=== PATIENT | male | born 1995 | race African-American/Black ===

== ENCOUNTER 2017-11-07 12:11 | Inpatient (IN) | payer BC, OTHER ==
[2017-11-07 13:20] VITALS: BMI 23.0
--- NOTE | 2017-11-07 13:44 | HP ---
COWS - Scale Resting Pulse: 1= MA 81-100 Sweatin= Chills/Flushing Restless Observation: 3= Extraneous Movement Pupil Size: 2= Moderately Dilated Bone or Joint Aches: 2= Severe Diffuse Aches Runny Nose/ Eye Tearin= Runny Nose/Eyes GI Upset > 30mins: 3= Vomiting/Diarrhea Tremor Observation: 2= Slight Tremor Visible Yawning Observation: 2= >3x During Session Anxiety or Irritability: 2=Irritable/Anxious Goose Flesh Skin: 0=Smooth Skin COWS Score: 20 Admission ROS S - HPI Chief Complaint: i need help help to stop using heroin Allergies/Adverse Reactions: Allergies Allergy/AdvReac Type Severity Reaction Status Date / Time No Known Allergies Allergy Verified 11/07/17 13:37 History of Present Illness: this 22 years old male with heroin dependence,seeking detox from heroin, withdrawal symptom,last treatment [facility] 10/08/17 to 10/10/17 not completed anxiety,insomnia nicotine dependence no significant period of sobriety Exam Limitations: No Limitations - Ebola screening Have you been sick,other than usual withdrawal symptoms: No - Review of Systems Constitutional: Chills, Loss of Appetite, Malaise, Night Sweats, Changes in sleep, Weakness EENT: reports: Tearing, Nose Congestion Respiratory: reports: No Symptoms reported, Other (astma) Cardiac: reports: No Symptoms Reported GI: reports: Nausea, Vomiting, Abdominal cramping : reports: No Symptoms Reported Musculoskeletal: reports: Back Pain, Joint Pain, Muscle Pain, Joint Stiffness Integumentary: reports: Dryness Neuro: reports: Headache, Tremors Endocrine: reports: No Symptoms Reported Hematology: reports: No Symptoms Reported Psychiatric: reports: Anxious (insomnia) Patient History - Patient Medical History Hx Anemia: No Hx Asthma: Yes (on albuterol inhaler) Hx Chronic Obstructive Pulmonary Disease (COPD): No Hx Cancer: No Hx Cardiac Disorders: No Hx Congestive Heart Failure: No Hx Hypertension: No Hx Hypercholesterolemia: No Hx Pacemaker: No HX Cerebrovascular Accident: No Hx Seizures: No Hx Dementia: No Hx Diabetes: No Hx Gastrointestinal Disorders: No Hx Liver Disease: No Hx Genitourinary Disorders: No Hx Sexually Transmitted Disorders: No Hx Renal Disease (ESRD): No Hx Thyroid Disease: No Hx Human Immunodeficiency Virus (HIV): No (last 08/11 negative) Hx Hepatitis C: No Hx Depression: Yes Hx Suicide Attempt: No Hx Bipolar Disorder: No Hx Schizophrenia: No Other Medical History: anxiety,insomnia,depression - Patient Surgical History Past Surgical History: No Hx Neurologic Surgery: No Hx Cataract Extraction: No Hx Cardiac Surgery: No Hx Lung Surgery: No Hx Breast Surgery: No Hx Breast Biopsy: No Hx Abdominal Surgery: No Hx Appendectomy: No Hx Cholecystectomy: No Hx Genitourinary Surgery: No Hx Section: No Hx Orthopedic Surgery: No - PPD History Documented Results: Negative w/o proof Implanted On Prior [facility] Admission?: Yes PPD to be Administered?: Yes - Smoking Cessation Smoking history: Current every day smoker Have you smoked in the past 12 months: Yes Aproximately how many cigarettes per day: 6 Cigars Per Day: 0 Hx Chewing Tobacco Use: No Initiated information on smoking cessation: Yes 'Breaking Loose' booklet given: 11/07/17 - Substance & Tx. History Hx Alcohol Use: No Hx Substance Use: Yes Substance Use Type: Heroin Hx Substance Use Treatment: Yes - Substances Abused Heroin Route: Inhalation Frequency: Daily Amount used: 7 BAGS Age of first use: 22 Date of Last Use: 11/07/17 Family Disease History - Family Disease History Family Disease History: Other: Father (no contact) Admission Physical Exam [facility] - Vital Signs Vital Signs: Vital Signs - 24 hr 11/07/17 13:15 Temperature 98.1 F Pulse Rate 93 H Respiratory 20 Rate Blood Pressure 126/57 - Physical General Appearance: Yes: Moderate Distress, Tremorous, Irritable, Sweating, Anxious HEENTM: Yes: Normal ENT Inspection, SHAKEEL, Pharynx Normal Respiratory: Yes: Lungs Clear, Normal Breath Sounds, No Respiratory Distress Neck: Yes: Within Normal Limits, Supple, Trachea in good position Breast: Yes: Within Normal Limits Cardiology: Yes: Within Normal Limits, Regular Rhythm, Regular Rate, S1, S2 Abdominal: Yes: Within Normal Limits, Normal Bowel Sounds, Non Tender, Flat, Soft Genitourinary: Yes: Within Normal Limits Back: Yes: Within Normal Limits, Muscle Spasm Musculoskeletal: Yes: full range of Motion, Back pain, Joint Stiffness, Muscle Pain Extremities: Yes: Tremors Neurological: Yes: polishing pad mounter II-XII NML intact, Fully Oriented, Motor Strength 5/5 Integumentary: Yes: Dry Lymphatic: Yes: Within Normal Limits - Diagnostic (1) Anxiety and depression Current Visit: Yes Status: Acute (2) Insomnia Current Visit: No Status: Acute Qualifiers: Insomnia type: unspecified Qualified Code(s): G47.00 - Insomnia, unspecified (3) Nicotine dependence Current Visit: No Status: Acute Qualifiers: Nicotine product type: cigarettes Substance use status: in withdrawal Qualified Code(s): F17.213 - Nicotine dependence, cigarettes, with withdrawal (4) Opioid dependence with withdrawal Current Visit: No Status: Acute (5) Asthma Current Visit: No Status: Chronic Qualifiers: Asthma severity: mild Asthma persistence: intermittent Asthma complication type: with status asthmaticus Qualified Code(s): J45.22 - Mild intermittent asthma with status asthmaticus (6) Substance induced mood disorder Current Visit: No Status: Suspected Cleared for Admission [facility] - Detox or Rehab [facility] Level of Care: Medically Managed Detox Regimen/Protocol: Methadone [facility] Breath Alcohol Content Breath Alcohol Content: 0 Urine Drug Screen - Results Drug Screen Negative: No Urine Drug Screen Results: OPI-Opiates, BZO-Benzodiazepines, TCA-Tricyclic Antidepress, OXY-Oxycodone
[2017-11-07] MEDS ORDERED: LOPERAMIDE HCL 2 MG CAPSULE PO PRN (13:53)
[2017-11-07] MEDS ORDERED: P-EPHED 60MG/TRIPROLIDI 2.5MG TABLET PO PRN (13:53)
[2017-11-07] MEDS ORDERED: MAG HYDROX/AL HYDROX/SIMETH 30 ML UNIT-DOSE CUP PO PRN (13:53)
[2017-11-07] MEDS ORDERED: IBUPROFEN 400 MG TABLET (FP) PO PRN (13:53)
[2017-11-07] MEDS ORDERED: guaiFENesin/D-METHORPHAN HB 10 ML UNIT-DOSE CUPS PO PRN (13:53)
[2017-11-07] MEDS ORDERED: MENTHOL/PHENOL 1 EACH UD MM PRN (13:53)
[2017-11-07] MEDS ORDERED: METHADONE HCL 10 MG TABLET (FOR DETOX USE ONLY) PO ONE ×2 (13:53→23:00)
[2017-11-07] MEDS ORDERED: ACETAMINOPHEN 325 MG TABLET (FP) PO PRN (13:53)
[2017-11-07] MEDS ORDERED: MAGNESIUM HYDROX 2400MG/30ML ORAL SUSPENSION 30 ML CUP PO PRN (13:53)
[2017-11-07] MEDS ORDERED: MAGNESIUM CITRATE 300 ML BOTTLE PO PRN (13:53)
[2017-11-07] MEDS ORDERED: METHADONE HCL 10 MG TABLET (FOR DETOX USE ONLY) ONE (16:25)
[2017-11-07] MEDS: diazePAM 5 MG TABLET PO PRN ×2 (16:31→22:34)
[2017-11-07 21:42] LABS: URINE APPEARANCE SLCLOUDY; URINE BILIRUBIN NEGATIVE (NEGATIVE); URINE BLOOD NEGATIVE (NEGATIVE); URINE COLOR AMBER; URINE GLUCOSE (UA) NEGATIVE (NEGATIVE); URINE KETONE NEGATIVE (NEGATIVE); URINE LEUK ESTERASE NEGATIVE (NEGATIVE); URINE NITRITE NEGATIVE (NEGATIVE); URINE PROTEIN NEGATIVE (NEGATIVE)
[2017-11-07] MEDS: cloNIDine HCL 0.1 MG TABLET PO SCH (22:34)
[2017-11-07] MEDS: THIAMINE HCL 100 MG TABLET (FP) PO SCH (22:34)
[2017-11-07] MEDS: CYCLOBENZAPRINE HCL 10 MG TABLET (FP) PO PRN (22:34)
[2017-11-08 10:00] LABS: HEMATOCRIT 40.2 % (35.4-49); HEMOGLOBIN 12.9 GM/dL (11.7-16.9); MCH 26.3 pg (25.7-33.7); MCHC 32.1 g/dl (32.0-35.9); MEAN CELL VOLUME 81.8 fl (80-96); MEAN PLT VOLUME 7.1 fl (7.5-11.1); PLATELET COUNT 349 K/MM3 (134-434); RBC 4.92 M/mm3 (4.00-5.60); RDW 12.5 % (11.9-15.9); WHITE BLOOD COUNT 16.1 K/mm3 (4.0-10.0)
[2017-11-08] MEDS ORDERED: METHADONE HCL 10 MG TABLET (FOR DETOX USE ONLY) PO ONE (10:00)
--- NOTE | 2017-11-08 10:00 | CONSULT ---
[facility] Psychiatric Consult - Data Date of interview: 11/08/17 Admission source: Self-referred Identifying data: Mr Palomo is a 22 years old single Black male, unemployed, living with family seeking detox treatment for heroin Substance Abuse History: Reports history of heroin use. He started using heroin at age 22, consumes 7 bags daily. Last used on 11/07/17 Medical History: Significant for bronchial asthma. Smokes 6 cigarettes daily Psychiatric History: Reports that he received psychiatric treatment at [facility] clinic from March 2016 to October 2016. He Claims that he was was diagnosed with Anxiety, ADELAIDE and Insomnia and was tried on Seroquel Zyprexa, Vistaril and Gabapentin. Told typewriter aligner he stopped medication on his own because he did not want it anymore. Denies history of previous hospitalization or suicidal attempt. He saw Dr Dawson on 10/09/17 on a previous inpt detox admission in this facility and was prescribed Seroquel 100 mg po HS. Requests to be ordered Seroquel 100 mg po HS as it is effective for insomnia and anxiety. Physical/Sexual Abuse/Trauma History: Denies history of verbal, physical or sexual abuse as well as DV relationship Additional Comment: Reports history of one previous arrest on charges of [employer]. Told typewriter aligner that case is active Mental Status Exam - Mental Status Exam Alert and Oriented to: Time, Place, Person Cognitive Function: Fair Patient Appearance: Well Groomed Mood: Anxious Patient Behavior: Cooperative Speech Pattern: Clear Voice Loudness: Normal Thought Process: Intact, Goal Oriented Thought Disorder: Not Present Hallucinations: Denies Suicidal Ideation: Denies Homicidal Ideation: Denies Insight/Judgement: Poor Sleep: Poorly Appetite: Good Muscle strength/Tone: Normal Gait/Station: Normal Psychiatric Findings - Problem List ([place] 1, 2,3) (1) Substance-induced anxiety disorder Current Visit: Yes Status: Acute (2) ADELAIDE (generalized anxiety disorder) Current Visit: Yes Status: Ruled-out (3) Substance-induced sleep disorder Current Visit: Yes Status: Acute (4) Opioid dependence with withdrawal Current Visit: No Status: Acute (5) Nicotine dependence Current Visit: No Status: Chronic Qualifiers: Nicotine product type: cigarettes Substance use status: in withdrawal Qualified Code(s): F17.213 - Nicotine dependence, cigarettes, with withdrawal (6) Asthma Current Visit: No Status: Chronic Qualifiers: Asthma severity: mild Asthma persistence: intermittent Asthma complication type: with status asthmaticus Qualified Code(s): J45.22 - Mild intermittent asthma with status asthmaticus - Initial Treatment Plan Initial Treatment Plan: 1) Start Seroquel 100 mg po HS. 2) Continue inpatient detoxification
[2017-11-08 10:27] LABS: CHLORIDE 107 mmol/L (98-107); POTASSIUM 3.7 mmol/L (3.5-5.1); SODIUM 141 mmol/L (136-145)
[2017-11-08 10:36] LABS: ALBUMIN 4.2 g/dl (3.4-5.0); ALK PHOS 88 U/L (45-117); ANION GAP 7 (8-16); BILIRUBIN,TOTAL 1.3 mg/dL (0.2-1.0); BLOOD UREA NITROGEN 13 mg/dL (7-18); CALCIUM 8.6 mg/dL (8.5-10.1); CO2 27 mmol/L (21-32); GLUCOSE,RANDOM 96 mg/dL (74-106); SGOT/AST 29 U/L (15-37); SGPT/ALT 57 U/L (12-78); TOT PROT 7.3 g/dl (6.4-8.2)
[2017-11-08] MEDS: PRENATAL VITAMINS W/ FOLIC ACID TABLET (FP) PO SCH (10:50)
[2017-11-08] MEDS: cloNIDine HCL 0.1 MG TABLET PO SCH ×2 (10:50→22:38)
[2017-11-08] MEDS: diazePAM 5 MG TABLET PO PRN ×2 (12:37→22:39)
--- NOTE | 2017-11-08 12:44 | PN ---
[facility] COWS - Scale Resting Pulse: 1= ID 81-100 Sweatin= Chills/Flushing Restless Observation: 3= Extraneous Movement Pupil Size: 0= Normal to Room Light Bone or Joint Aches: 2= Severe Diffuse Aches Runny Nose/ Eye Tearin= Runny Nose/Eyes GI Upset > 30mins: 2= Nausea/Diarrhea Tremor Observation of Outstretched Hands: 1= Tremor [place], Not Seen Yawning Observation: 1= 1-2x During Session Anxiety or Irritability: 2=Irritable/Anxious Goose Flesh Skin: 0=Smooth Skin COWS Score: 15 S Progress Note (SOAP) Subjective: sweat body aches tearing restlessness alert Objective: 11/08/17 12:43 Vital Signs Temperature 97.7 F 11/08/17 10:00 Pulse Rate 95 H 11/08/17 10:00 Respiratory Rate 20 11/08/17 10:00 Blood Pressure 126/70 11/08/17 10:00 O2 Sat by Pulse Oximetry (%) Laboratory Last Values WBC 16.1 K/mm3 (4.0-10.0) H D 11/08/17 07:30 RBC 4.92 M/mm3 (4.00-5.60) 11/08/17 07:30 Hgb 12.9 GM/dL (11.7-16.9) 11/08/17 07:30 Hct 40.2 % (35.4-49) 11/08/17 07:30 MCV 81.8 fl (80-96) 11/08/17 07:30 MCH 26.3 pg (25.7-33.7) 11/08/17 07:30 MCHC 32.1 g/dl (32.0-35.9) 11/08/17 07:30 RDW 12.5 % (11.9-15.9) 11/08/17 07:30 Plt Count 349 K/MM3 (134-434) 11/08/17 07:30 MPV 7.1 fl (7.5-11.1) L 11/08/17 07:30 Sodium 141 mmol/L (136-145) 11/08/17 07:30 Potassium 3.7 mmol/L (3.5-5.1) 11/08/17 07:30 Chloride 107 mmol/L (98-107) 11/08/17 07:30 Carbon Dioxide 27 mmol/L (21-32) 11/08/17 07:30 Anion Gap 7 (8-16) L 11/08/17 07:30 BUN 13 mg/dL (7-18) 11/08/17 07:30 Creatinine 1.0 mg/dL (0.7-1.3) D 11/08/17 07:30 Creat Clearance w eGFR > 60 (>60) 11/08/17 07:30 Random Glucose 96 mg/dL (74-106) 11/08/17 07:30 Calcium 8.6 mg/dL (8.5-10.1) 11/08/17 07:30 Total Bilirubin 1.3 mg/dL (0.2-1.0) H D 11/08/17 07:30 AST 29 U/L (15-37) 11/08/17 07:30 ALT 57 U/L (12-78) 11/08/17 07:30 Alkaline Phosphatase 88 U/L (45-117) 11/08/17 07:30 Total Protein 7.3 g/dl (6.4-8.2) 11/08/17 07:30 Albumin 4.2 g/dl (3.4-5.0) 11/08/17 07:30 Urine Color Jenny 11/07/17 14:00 Urine Appearance Slcloudy 11/07/17 14:00 Urine pH 5.0 (5.0-8.0) 11/07/17 14:00 Ur Specific [place] 1.027 (1.001-1.035) 11/07/17 14:00 Urine Protein Negative (NEGATIVE) 11/07/17 14:00 Urine Glucose (UA) Negative (NEGATIVE) 11/07/17 14:00 Urine Ketones Negative (NEGATIVE) 11/07/17 14:00 Urine Blood Negative (NEGATIVE) 11/07/17 14:00 Urine Nitrite Negative (NEGATIVE) 11/07/17 14:00 Urine Bilirubin Negative (NEGATIVE) 11/07/17 14:00 Urine Urobilinogen 2.0 mg/dL (0.2-1.0) 11/07/17 14:00 Ur Leukocyte Esterase Negative (NEGATIVE) 11/07/17 14:00 lab noted Assessment: 11/08/17 12:44 withdrawal sx Plan: continue detox
[2017-11-08] MEDS ORDERED: QUEtiapine FUMARATE 100 MG TABLET (FP) PO SCH (22:00)
[2017-11-08] MEDS: CYCLOBENZAPRINE HCL 10 MG TABLET (FP) PO PRN (22:38)
[2017-11-08] MEDS: THIAMINE HCL 100 MG TABLET (FP) PO SCH (22:39)
[2017-11-09] MEDS ORDERED: METHADONE HCL 5 MG TABLET (FOR DETOX USE ONLY) PO ONE (10:00)
[2017-11-09] MEDS: cloNIDine HCL 0.1 MG TABLET PO SCH (11:16)
[2017-11-09] MEDS: PRENATAL VITAMINS W/ FOLIC ACID TABLET (FP) PO SCH (11:16)
[2017-11-09] MEDS: diazePAM 5 MG TABLET PO PRN (11:19)
--- NOTE | 2017-11-09 11:49 | EKG ---
Test Reason : Blood Pressure : / mmHG Vent. Rate : 084 BPM Atrial Rate : 084 BPM P-R Int : 172 ms QRS Dur : 086 ms QT Int : 378 ms P-R-T Axes : 025 050 033 degrees QTc Int : 446 ms NORMAL SINUS RHYTHM NORMAL ECG WHEN COMPARED WITH ECG OF 08-OCT-2017 21:40, NONSPECIFIC T WAVE ABNORMALITY NO LONGER EVIDENT IN ANTERIOR LEADS Confirmed by GEOVANY LUGO MD ([id number]) on 11/09/2017 11:48:28 AM Referred By: Chris Mendoza Confirmed By:GEOVANY LUGO MD
--- NOTE | 2017-11-09 12:15 | PN ---
BHS COWS - Scale Resting Pulse: 0= FL 80 or Below Sweatin= Chills/Flushing Restless Observation: 3= Extraneous Movement Pupil Size: 1= Pupils >than Normal Bone or Joint Aches: 2= Severe Diffuse Aches Runny Nose/ Eye Tearin= Runny Nose/Eyes GI Upset > 30mins: 3= Vomiting/Diarrhea Tremor Observation of Outstretched Hands: 2= Slight Tremor Visible Yawning Observation: 1= 1-2x During Session Anxiety or Irritability: 2=Irritable/Anxious Goose Flesh Skin: 0=Smooth Skin COWS Score: 17 BHS Progress Note (SOAP) Subjective: ALERT,IRRITABLE,ANXIOUS,INTERRUPTED SLEEP,TREMOR,PAIN IN THE BODY AND BACK Objective: 11/09/17 12:11 Vital Signs Temperature 98.2 F 11/09/17 11:47 Pulse Rate 95 H 11/09/17 11:47 Respiratory Rate 16 11/09/17 11:47 Blood Pressure 100/71 11/09/17 11:47 O2 Sat by Pulse Oximetry (%) RKG NSR,NORMAL ECG Laboratory Last Values WBC 16.1 K/mm3 (4.0-10.0) H D 11/08/17 07:30 RBC 4.92 M/mm3 (4.00-5.60) 11/08/17 07:30 Hgb 12.9 GM/dL (11.7-16.9) 11/08/17 07:30 Hct 40.2 % (35.4-49) 11/08/17 07:30 MCV 81.8 fl (80-96) 11/08/17 07:30 MCH 26.3 pg (25.7-33.7) 11/08/17 07:30 MCHC 32.1 g/dl (32.0-35.9) 11/08/17 07:30 RDW 12.5 % (11.9-15.9) 11/08/17 07:30 Plt Count 349 K/MM3 (134-434) 11/08/17 07:30 MPV 7.1 fl (7.5-11.1) L 11/08/17 07:30 Sodium 141 mmol/L (136-145) 11/08/17 07:30 Potassium 3.7 mmol/L (3.5-5.1) 11/08/17 07:30 Chloride 107 mmol/L (98-107) 11/08/17 07:30 Carbon Dioxide 27 mmol/L (21-32) 11/08/17 07:30 Anion Gap 7 (8-16) L 11/08/17 07:30 BUN 13 mg/dL (7-18) 11/08/17 07:30 Creatinine 1.0 mg/dL (0.7-1.3) D 11/08/17 07:30 Creat Clearance w eGFR > 60 (>60) 11/08/17 07:30 Random Glucose 96 mg/dL (74-106) 11/08/17 07:30 Calcium 8.6 mg/dL (8.5-10.1) 11/08/17 07:30 Total Bilirubin 1.3 mg/dL (0.2-1.0) H D 11/08/17 07:30 AST 29 U/L (15-37) 11/08/17 07:30 ALT 57 U/L (12-78) 11/08/17 07:30 Alkaline Phosphatase 88 U/L (45-117) 11/08/17 07:30 Total Protein 7.3 g/dl (6.4-8.2) 11/08/17 07:30 Albumin 4.2 g/dl (3.4-5.0) 11/08/17 07:30 Urine Color Jenny 11/07/17 14:00 Urine Appearance Slcloudy 11/07/17 14:00 Urine pH 5.0 (5.0-8.0) 11/07/17 14:00 Ur Specific [place] 1.027 (1.001-1.035) 11/07/17 14:00 Urine Protein Negative (NEGATIVE) 11/07/17 14:00 Urine Glucose (UA) Negative (NEGATIVE) 11/07/17 14:00 Urine Ketones Negative (NEGATIVE) 11/07/17 14:00 Urine Blood Negative (NEGATIVE) 11/07/17 14:00 Urine Nitrite Negative (NEGATIVE) 11/07/17 14:00 Urine Bilirubin Negative (NEGATIVE) 11/07/17 14:00 Urine Urobilinogen 2.0 mg/dL (0.2-1.0) 11/07/17 14:00 Ur Leukocyte Esterase Negative (NEGATIVE) 11/07/17 14:00 RPR Titer Nonreactive (NONREACTIVE) 11/08/17 07:30 Assessment: 11/09/17 12:13 WITHDRAWAL SYMPTOM Plan: CONTINUE DETOX,ENCOURAGE ORAL FLUID,WBC 16.100, ENCOURAGE ORAL FLUID,REPEAT CBC,BILIRUBIN IN AM
[2017-11-09 14:31] VITALS: BP 96/71; PULSE 71; TEMP 98.6
--- NOTE | 2017-11-09 14:35 | PN ---
S Progress Note Note: PATIENT DID NOT WANT TO COMPLETE TREATMENT DUE TO EMERGENCY FAMILY PROBLEM,SEEN BY COUNSELOR,SIGNED RELEASE AMA
--- NOTE | 2017-11-09 14:40 | DS ---
[facility] Detox Discharge Summary Admission Date: 11/07/17 Discharge Date: 11/09/17 - History Present History: Opioid Dependence Additional Comments: PATIENT COULD NOT COMPLETE TREATMENT DUE TO FAMILY EMERGENCY,SEEN BY COUNSELOR, SIGNED RELEASE AMA Pertinent Past History: ASTHMA NICOTINE DEPENDENCE ANXIETY AND DEPRESSION INSOMNIA SUBSTANCE INDUCED MOOD DISORDER - Physical Exam Results Vital Signs: Vital Signs Temperature 98.6 F 11/09/17 14:26 Pulse Rate 71 11/09/17 14:26 Respiratory Rate 20 11/09/17 14:26 Blood Pressure 96/71 11/09/17 14:26 O2 Sat by Pulse Oximetry (%) Pertinent Admission Physical Exam Findings: WITHDRAWAL SYMPTOM AND FINDINGS Vital Signs Temperature 98.6 F 11/09/17 14:26 Pulse Rate 71 11/09/17 14:26 Respiratory Rate 20 11/09/17 14:26 Blood Pressure 96/71 11/09/17 14:26 O2 Sat by Pulse Oximetry (%) - Medication Discharge Medications: Ambulatory Orders Albuterol Sulfate Inhaler - [Ventolin Hfa Inhaler -] 2 inh PO Q4H 10/08/17 Quetiapine Fumarate [Seroquel] 100 mg PO HS #30 tablet 11/09/17 - Diagnosis (1) Opioid dependence with withdrawal Current Visit: No Status: Acute (2) Anxiety and depression Current Visit: Yes Status: Acute (3) Insomnia Current Visit: No Status: Acute Qualifiers: Insomnia type: unspecified Qualified Code(s): G47.00 - Insomnia, unspecified (4) Nicotine dependence Current Visit: No Status: Chronic Qualifiers: Nicotine product type: cigarettes Substance use status: in withdrawal Qualified Code(s): F17.213 - Nicotine dependence, cigarettes, with withdrawal (5) Asthma Current Visit: No Status: Chronic Qualifiers: Asthma severity: mild Asthma persistence: intermittent Asthma complication type: with status asthmaticus Qualified Code(s): J45.22 - Mild intermittent asthma with status asthmaticus (6) Substance induced mood disorder Current Visit: No Status: Suspected - AMA Did Patient Leave Against Medical Advice: Yes
[2017-11-10] MEDS ORDERED: METHADONE HCL 5 MG TABLET (FOR DETOX USE ONLY) PO ONE (10:00)
[2017-11-11] MEDS ORDERED: METHADONE HCL 10 MG TABLET (FOR DETOX USE ONLY) PO ONE (10:00)
[2017-11-12] MEDS ORDERED: METHADONE HCL 5 MG TABLET (FOR DETOX USE ONLY) PO ONE (06:00)
== END 2017-11-09 14:57 | disposition left against medical advice (07) | DRG 894 ==
LOC: YASAS 12:11 → Y6N 13:56
PROVIDERS: ADMIT Internal Medicine; ATTEND Internal Medicine
PROC: HZ2ZZZZ Detoxification Services for Substance Abuse Treatment (ICD-10-PCS; principal; 2017-11-07)
DX: F11.23 Opioid dependence with withdrawal (principal); J45.22 Mild intermittent asthma with status asthmaticus; F17.213 Nicotine dependence, cigarettes, with withdrawal; F41.8 Other specified anxiety disorders; F19.24 Other psychoactive substance dependence with psychoactive substance-induced mood disorder; F41.1 Generalized anxiety disorder; G47.00 Insomnia, unspecified
CPT/HCPCS: 36415; 80053; 81003; 85027; 86593; 93005; 93010

== ENCOUNTER 2018-08-11 12:09 | Inpatient (IN) | payer OTHER ==
[2018-08-11 16:06] VITALS: BMI 23.3
--- NOTE | 2018-08-11 16:45 | HP ---
COWS - Scale Resting Pulse: 2= FL 101-120 Sweatin= Chills/Flushing Restless Observation: 1= Difficult to Sit Still Pupil Size: 1= Pupils >than Normal Bone or Joint Aches: 1= Mild Discomfort Runny Nose/ Eye Tearin= Runny Nose/Eyes GI Upset > 30mins: 0= None Tremor Observation: 0= None Yawning Observation: 1= 1-2x During Session Anxiety or Irritability: 2=Irritable/Anxious Goose Flesh Skin: 3=Piloerection COWS Score: 14 CIWA Score - CIWA Score Nausea/Vomitin-No Nausea/No Vomiting Muscle Tremors: None Anxiety: 3 Agitation: 3 Paroxysmal Sweats: 3 Orientation: 2-Disoriented Date<2 days Tacttile Disturbances: 0-None Auditory Disturbances: 0-None Visual Disturbances: 0-None Headache: 2-Mild CIWA-Ar Total Score: 13 Admission ROS S - [facility] Chief Complaint: HEROIN/ETOH WITHDRAWAL SYMPTOMS Allergies/Adverse Reactions: Allergies Allergy/AdvReac Type Severity Reaction Status Date / Time No Known Allergies Allergy Verified 08/11/18 16:08 History of Present Illness: PATIENT PRESENTS FOR HEROIN/ETOH WITHDRAWAL SYMPTOMS. PATIENT SNIFFS 6 BAGS DAILY FOR 15 MONTHS. LAST TIME HE SNIFFED HEROIN WAS THIS MORNING. PATIENT ALSO DRINKS ETOH FOR THE PAST 8 MONTHS. HE DRINKS 1 PINT OF LIQUOR DAILY, LAST TIME HE DRANK WAS TODAY. DENIES H/SEIZURES, DT AND BLACKOUTS. DENIES H/O OVERDOSE. HAS HAD MULTIPLE ADMISSIONS THIS YEAR. PMH ASTHMA, DEPRESSION AND ANXIETY. DENIES SI/HI AND SUICIDE ATTEMPTS. Exam Limitations: No Limitations - Ebola screening Have you traveled outside of the country in the last 21 days: No (N) Have you had contact with anyone from an Ebola affected area: No Have you been sick,other than usual withdrawal symptoms: No Do you have a fever: No - Review of Systems Constitutional: Night Sweats, Changes in sleep EENT: reports: Nose Congestion Respiratory: reports: No Symptoms reported Cardiac: reports: No Symptoms Reported GI: reports: Nausea, Poor Fluid Intake, Abdominal cramping : reports: No Symptoms Reported Musculoskeletal: reports: No Symptoms Reported Integumentary: reports: Sweating Neuro: reports: Headache Endocrine: reports: No Symptoms Reported Hematology: reports: No Symptoms Reported Psychiatric: reports: Anxious, Depressed Patient History - Patient Medical History Hx Anemia: No Hx Asthma: Yes Hx Chronic Obstructive Pulmonary Disease (COPD): No Hx Cancer: No Hx Cardiac Disorders: No Hx Congestive Heart Failure: No Hx Hypertension: No Hx Hypercholesterolemia: No Hx Pacemaker: No HX Cerebrovascular Accident: No Hx Seizures: No Hx Dementia: No Hx Diabetes: No Hx Gastrointestinal Disorders: No Hx Liver Disease: No Hx Genitourinary Disorders: No Hx Sexually Transmitted Disorders: No Hx Renal Disease (ESRD): No Hx Thyroid Disease: No Hx Human Immunodeficiency Virus (HIV): No (last 08/11 negative) Hx Hepatitis C: No Hx Depression: Yes Hx Suicide Attempt: No Hx Bipolar Disorder: No Hx Schizophrenia: No - Patient Surgical History Past Surgical History: No Hx Neurologic Surgery: No Hx Cataract Extraction: No Hx Cardiac Surgery: No Hx Lung Surgery: No Hx Breast Surgery: No Hx Breast Biopsy: No Hx Abdominal Surgery: No Hx Appendectomy: No Hx Cholecystectomy: No Hx Genitourinary Surgery: No Hx Section: No Hx Orthopedic Surgery: No - PPD History Previous Implant?: Yes Documented Results: Negative w/o proof Implanted On Prior [facility] Admission?: No PPD to be Administered?: Yes - Smoking Cessation Smoking history: Current every day smoker Have you smoked in the past 12 months: Yes Aproximately how many cigarettes per day: 10 Cigars Per Day: 0 Hx Chewing Tobacco Use: No Initiated information on smoking cessation: Yes 'Breaking Loose' booklet given: 08/11/18 - Substance & Tx. History Hx Alcohol Use: Yes Hx Substance Use: Yes Substance Use Type: Alcohol, Heroin Hx Substance Use Treatment: Yes - Substances Abused Heroin Route: Inhalation Frequency: Daily Amount used: 3-6 BAGS Age of first use: 22 Date of Last Use: 08/11/18 Alcohol Route: Oral Frequency: Daily Amount used: 3-4 CUPS LIQUOR OR 1/2 BOTTLE OF MARGARITAS Age of first use: 23 Date of Last Use: 08/11/18 Family Disease History - Family Disease History Family Disease History: Other: Father (no contact) Admission Physical Exam [facility] - Vital Signs Vital Signs: Vital Signs - 24 hr 08/11/18 16:03 Temperature 96.3 F L Pulse Rate 102 H Respiratory 18 Rate Blood Pressure 124/69 - Physical General Appearance: Yes: No Apparent Distress, Nourished, Appropriately Dressed , Sweating, Anxious HEENTM: Yes: EOMI, Hearing grossly Normal, Normal ENT Inspection, Normocephalic , Normal Voice, SHAKEEL, Pharynx Normal Respiratory: Yes: Chest Non-Tender, Lungs Clear, Normal Breath Sounds, No Respiratory Distress, No Accessory Muscle Use Neck: Yes: No masses,lesions,Nodules, Supple Breast: Yes: Breast Exam Deferred Cardiology: Yes: Regular Rhythm, Regular Rate, S1, S2 Abdominal: Yes: Normal Bowel Sounds, Non Tender, Soft Genitourinary: Yes: Within Normal Limits Back: Yes: Within Normal Limits Musculoskeletal: Yes: full range of Motion, Gait Steady Extremities: Yes: Normal Inspection, Normal Range of Motion, Non-Tender Neurological: Yes: spear fisher II-XII NML intact, Fully Oriented, Alert, Motor Strength 5/5, Normal Response, Depressed Affect Integumentary: Yes: Normal Color, Warm, Moist Lymphatic: Yes: Within Normal Limits Cleared for Admission [facility] - Detox or Rehab [facility] Level of Care: Medically Managed Detox Regimen/Protocol: Methadone/Librium [facility] Breath Alcohol Content Breath Alcohol Content: 0 Urine Drug Screen - Results Drug Screen Negative: No Urine Drug Screen Results: OPI-Opiates, OXY-Oxycodone, FEN-Fentanyl
[2018-08-11] MEDS ORDERED: LOPERAMIDE HCL 2 MG CAPSULE PO PRN (16:46)
[2018-08-11] MEDS ORDERED: MENTHOL/PHENOL 1 EACH UD MM PRN (16:46)
[2018-08-11] MEDS ORDERED: hydrOXYzine PAMOATE 50 MG CAPSULE (FP) PO PRN (16:46)
[2018-08-11] MEDS ORDERED: P-EPHED 60MG/TRIPROLIDI 2.5MG TABLET PO PRN (16:46)
[2018-08-11] MEDS ORDERED: MAG HYDROX/AL HYDROX/SIMETH 30 ML UNIT-DOSE CUP PO PRN (16:46)
[2018-08-11] MEDS ORDERED: IBUPROFEN 400 MG TABLET (FP) PO PRN (16:46)
[2018-08-11] MEDS ORDERED: MAGNESIUM CITRATE 300 ML BOTTLE PO PRN (16:46)
[2018-08-11] MEDS ORDERED: MAGNESIUM HYDROX 2400MG/30ML ORAL SUSPENSION 30 ML CUP PO PRN (16:46)
[2018-08-11] MEDS ORDERED: ACETAMINOPHEN 325 MG TABLET (FP) PO PRN (16:46)
[2018-08-11] MEDS ORDERED: guaiFENesin/D-METHORPHAN HB 10 ML UNIT-DOSE CUPS PO PRN (16:46)
[2018-08-11] MEDS ORDERED: ALBUTEROL SO4 8 GM HFA INHALER IH PRN (16:50)
[2018-08-11] MEDS ORDERED: METHADONE HCL 10 MG TABLET (FOR DETOX USE ONLY) PO ONE ×2 (17:15→23:00)
[2018-08-11] MEDS: chlordiazePOXIDE HCL 25 MG CAPSULE PO PRN (17:38)
[2018-08-11] MEDS ORDERED: MELATONIN 5 MG TABLETS PO PRN (22:00)
[2018-08-11] MEDS: THIAMINE HCL 100 MG TABLET (FP) PO SCH (22:26)
[2018-08-11] MEDS: chlordiazePOXIDE HCL 25 MG CAPSULE PO SCH (22:27)
[2018-08-12 01:12] LABS: URINE APPEARANCE CLEAR; URINE BILIRUBIN NEGATIVE (<2.0 mg/dL); URINE COLOR DKYELLOW; URINE GLUCOSE (UA) 2+ (NEGATIVE); URINE KETONE NEGATIVE (NEGATIVE); URINE LEUK ESTERASE NEGATIVE (NEGATIVE); URINE NITRITE NEGATIVE (NEGATIVE); URINE PROTEIN NEGATIVE (NEGATIVE); URINE UROBILINOGEN NEGATIVE mg/dL (0.2-1.0)
[2018-08-12] MEDS: chlordiazePOXIDE HCL 25 MG CAPSULE PO SCH ×4 (06:19→22:25)
[2018-08-12] MEDS ORDERED: METHADONE HCL 10 MG TABLET (FOR DETOX USE ONLY) PO SCH (10:00)
[2018-08-12 10:30] LABS: HEMATOCRIT 40.1 % (35.4-49); HEMOGLOBIN 12.6 GM/dL (11.7-16.9); MCH 25.5 pg (25.7-33.7); MCHC 31.3 g/dl (32.0-35.9); MEAN CELL VOLUME 81.4 fl (80-96); MEAN PLT VOLUME 7.1 fl (7.5-11.1); PLATELET COUNT 313 K/MM3 (134-434); RBC 4.93 M/mm3 (4.00-5.60); RDW 12.8 % (11.9-15.9); WHITE BLOOD COUNT 11.5 K/mm3 (4.0-10.0)
[2018-08-12] MEDS: PRENATAL VITAMINS W/ FOLIC ACID TABLET (FP) PO SCH (10:52)
[2018-08-12 10:54] LABS: ALBUMIN 3.9 g/dl (3.4-5.0); ALK PHOS 98 U/L (45-117); ANION GAP 7 MMOL/L (8-16); BILIRUBIN,TOTAL 0.7 mg/dL (0.2-1); BLOOD UREA NITROGEN 10 mg/dL (7-18); CALCIUM 9.1 mg/dL (8.5-10.1); CHLORIDE 106 mmol/L (98-107); CO2 29 mmol/L (21-32); CREATININE 0.7 mg/dL (0.55-1.3); GLUCOSE,RANDOM 86 mg/dL (74-106); POTASSIUM 4.4 mmol/L (3.5-5.1); SGOT/AST 21 U/L (15-37); SGPT/ALT 43 U/L (13-61); SODIUM 143 mmol/L (136-145); TOT PROT 6.9 g/dl (6.4-8.2)
--- NOTE | 2018-08-12 11:06 | PN ---
[facility] CIWA - CIWA Score Nausea/Vomitin Muscle Tremors: 4-Moderate,w/Arms Extend Anxiety: 4-Mod. Anxious/Guarded Agitation: 4-Moderately Restless Paroxysmal Sweats: 3 Orientation: 0-Oriented Tacttile Disturbances: 0-None Auditory Disturbances: 0-None Visual Disturbances: 0-None Headache: 0-None Present CIWA-Ar Total Score: 18 [facility] COWS - Scale Resting Pulse: 1= [place] 81-100 Sweatin=Flushed/Facial Moisture Restless Observation: 3= Extraneous Movement Pupil Size: 0= Normal to Room Light Bone or Joint Aches: 2= Severe Diffuse Aches Runny Nose/ Eye Tearin= Runny Nose/Eyes GI Upset > 30mins: 3= Vomiting/Diarrhea Tremor Observation of Outstretched Hands: 2= Slight Tremor Visible Yawning Observation: 1= 1-2x During Session Anxiety or Irritability: 2=Irritable/Anxious Goose Flesh Skin: 0=Smooth Skin COWS Score: 18 [facility] Progress Note (SOAP) Subjective: Patient asleep but arousable easily and refused to speak with entry writer Objective: 08/12/18 11:02 Last Vital Signs Temp Pulse Resp BP Pulse Ox 97.6 F 70 18 107/69 08/12/18 06:25 08/12/18 06:25 08/12/18 06:25 08/12/18 06:25 Laboratory Tests 08/12/18 08/12/18 08/12/18 00:05 07:00 07:00 WBC 11.5 H RBC 4.93 Hgb 12.6 Hct 40.1 MCV 81.4 MCH 25.5 L MCHC 31.3 L RDW 12.8 Plt Count 313 MPV 7.1 L Sodium 143 Potassium 4.4 Chloride 106 Carbon Dioxide 29 Anion Gap 7 L BUN 10 Creatinine 0.7 Creat Clearance w eGFR > 60 Random Glucose 86 Calcium 9.1 Total Bilirubin 0.7 AST 21 ALT 43 Alkaline Phosphatase 98 Total Protein 6.9 Albumin 3.9 Urine Color Dkyellow Urine Appearance Clear Urine pH 5.0 Ur Specific [place] 1.029 Urine Protein Negative Urine Glucose (UA) 2+ H Urine Ketones Negative Urine Blood Negative Urine Nitrite Negative Urine Bilirubin Negative Urine Urobilinogen Negative Ur Leukocyte Esterase Negative Labs reviewed: wbc 11.5, UA shows 2+ glucose Assessment: 08/12/18 11:05 Withdrawal symptoms Noted with leukocytosis and glycosuria Plan: Continue detox Leukocytosis: asymptomatic for infection, repeat CBC Glycosuria: encouraged PO water intake, repeat UA
[2018-08-12] MEDS: chlordiazePOXIDE HCL 25 MG CAPSULE PO PRN ×2 (12:04→20:47)
--- NOTE | 2018-08-12 12:15 | CONSULT ---
[facility] Psychiatric Consult - Data Date of interview: 08/12/18 Admission source: [facility] Identifying data: Patient is a 23 year old single male, without children, unemployed, and currently resides with is mother and older brother. This is one of multiple admissions for patient. Patient admitted to for alcohol and opiate dependence. Substance Abuse History: Smoking Cessation. Smoking history: Current every day smoker. Have you smoked in the past 12 months: Yes. Aproximately how many cigarettes per day: 10. Cigars Per Day: 0. Hx Chewing Tobacco Use: No. Initiated information on smoking cessation: Yes. 'Breaking Loose' booklet given : 08/11/18. - Substance & Tx. History. Hx Alcohol Use: Yes. Hx Substance Use : Yes. Substance Use Type: Alcohol, Heroin. Hx Substance Use Treatment: Yes. - Substances Abused. Heroin. Route: Inhalation. Frequency: Daily. Amount used: 3-6 BAGS. Age of first use: 22. Date of Last Use: 08/11/18. Alcohol. Route: Oral. Frequency: Daily. Amount used: 3-4 CUPS LIQUOR OR 1/2 BOTTLE OF MARGARITAS. Age of first use: 23. Date of Last Use: 08/11/18 Psychiatric History: Patient denies h/o psychiatric hospitalization. Patient was seeing a psychiatrist in [place] (2016) and was tried on klonopin, zoloft, zyprexa, seroquel, risperdal. Eventually he was maintained on Zoloft 75mg + Seroquel 400mg + Vistaril 100mg qhs. He reports h/o anxiety and paranoia of people plotting against him. He discontinued his medication regime after eight months. Patient denies outpatient psychiatric care since 2016. Patient has multiple admissions to detox in which he was prescribed seroquel 100mg. Currently, he denies paranoia and anxiety but does report difficulty sleeping. Patient denies h/o suicide attempt. Physical/Sexual Abuse/Trauma History: denies. Mental Status Exam - Mental Status Exam Alert and Oriented to: Time, Place, Person Cognitive Function: Good Patient Appearance: Well Groomed Mood: Hopeful, Euthymic Affect: Mood Congruent Patient Behavior: Appropriate, Cooperative Speech Pattern: Appropriate Voice Loudness: Normal Thought Process: Intact, Goal Oriented Thought Disorder: Not Present Hallucinations: Denies Suicidal Ideation: Denies Homicidal Ideation: Denies Insight/Judgement: Poor Sleep: Poorly Appetite: Fair Muscle strength/Tone: Normal Gait/Station: Normal Psychiatric Findings - Problem List ([place] 1, 2,3) (1) Alcohol dependence with uncomplicated withdrawal Current Visit: Yes Status: Acute (2) Opioid dependence with withdrawal Current Visit: Yes Status: Acute (3) Substance-induced sleep disorder Current Visit: Yes Status: Acute - Initial Treatment Plan Initial Treatment Plan: Psychoeducation provided. Detoxification in progress. Will order Seroquel 50mg qhs. Benefits and side effects discussed. Verbal consent given.
[2018-08-12] MEDS ORDERED: METHADONE HCL 10 MG TABLET (FOR DETOX USE ONLY) PO ONE (13:45)
[2018-08-12] MEDS ORDERED: QUEtiapine FUMARATE 50 MG TABLET PO SCH (22:00)
[2018-08-12] MEDS: THIAMINE HCL 100 MG TABLET (FP) PO SCH (22:25)
[2018-08-13] MEDS: chlordiazePOXIDE HCL 25 MG CAPSULE PO SCH ×2 (05:30→10:19)
[2018-08-13 09:36] VITALS: BP 94/58; PULSE 76; TEMP 98
[2018-08-13] MEDS ORDERED: METHADONE HCL 5 MG TABLET (FOR DETOX USE ONLY) PO SCH (10:00)
[2018-08-13 10:17] LABS: BASO % 0.4 % (0-2.0); EOS % 6.4 % (0-4.5); HEMATOCRIT 38.2 % (35.4-49); HEMOGLOBIN 11.9 GM/dL (11.7-16.9); LYMPH % 16.4 % (8-40); MCH 25.2 pg (25.7-33.7); MEAN CELL VOLUME 81.3 fl (80-96); MEAN PLT VOLUME 7.1 fl (7.5-11.1); MONO % 12.4 % (3.8-10.2); NEUT % 64.4 % (42.8-82.8); PLATELET COUNT 310 K/MM3 (134-434); RDW 12.7 % (11.9-15.9); WHITE BLOOD COUNT 16.6 K/mm3 (4.0-10.0)
[2018-08-13] MEDS: PRENATAL VITAMINS W/ FOLIC ACID TABLET (FP) PO SCH (10:19)
--- NOTE | 2018-08-13 15:24 | DS ---
[facility] Detox Discharge Summary Admission Date: 08/11/18 Discharge Date: 08/13/18 - History Present History: Alcohol Dependence, Opioid Dependence Additional Comments: Patient decided to leave AMA. Car Parker spoke with patient at length regarding importance of completing detox. 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 He later told narrative writer that he has to leave because he has important things to do. Patient aware that his wbc increased and that it needs to be repeated and he may need further workup including chest xray but he refused. Patient also refused to provide UA. Patient denies any withdrawal symptoms. Patient instructed to call 911 if feels sick or any withdrawal symptoms and to see his PCP within 3 days. Patient verbalized understanding. Pertinent Past History: Asthma - Physical Exam Results Vital Signs: Vital Signs Temperature 98.0 F 08/13/18 09:36 Pulse Rate 76 08/13/18 09:36 Respiratory Rate 17 08/13/18 09:36 Blood Pressure 94/58 L 08/13/18 09:36 O2 Sat by Pulse Oximetry (%) Pertinent Admission Physical Exam Findings: Withdrawal symptoms Laboratory Tests 08/12/18 08/12/18 08/12/18 00:05 07:00 07:00 WBC 11.5 H RBC 4.93 Hgb 12.6 Hct 40.1 MCV 81.4 MCH 25.5 L MCHC 31.3 L RDW 12.8 Plt Count 313 MPV 7.1 L Absolute Neuts (auto) Neutrophils % Lymphocytes % Monocytes % Eosinophils % Basophils % Nucleated RBC % Sodium 143 Potassium 4.4 Chloride 106 Carbon Dioxide 29 Anion Gap 7 L BUN 10 Creatinine 0.7 Creat Clearance w eGFR > 60 Random Glucose 86 Calcium 9.1 Total Bilirubin 0.7 AST 21 ALT 43 Alkaline Phosphatase 98 Total Protein 6.9 Albumin 3.9 Urine Color Dkyellow Urine Appearance Clear Urine pH 5.0 Ur Specific [place] 1.029 Urine Protein Negative Urine Glucose (UA) 2+ H Urine Ketones Negative Urine Blood Negative Urine Nitrite Negative Urine Bilirubin Negative Urine Urobilinogen Negative Ur Leukocyte Esterase Negative RPR Titer 08/12/18 08/13/18 07:00 07:00 WBC 16.6 H RBC 4.70 Hgb 11.9 Hct 38.2 MCV 81.3 MCH 25.2 L MCHC 31.0 L RDW 12.7 Plt Count 310 MPV 7.1 L Absolute Neuts (auto) 10.7 H Neutrophils % 64.4 Lymphocytes % 16.4 Monocytes % 12.4 H Eosinophils % 6.4 H Basophils % 0.4 Nucleated RBC % 0 Sodium Potassium Chloride Carbon Dioxide Anion Gap BUN Creatinine Creat Clearance w eGFR Random Glucose Calcium Total Bilirubin AST ALT Alkaline Phosphatase Total Protein Albumin Urine Color Urine Appearance Urine pH Ur Specific [place] Urine Protein Urine Glucose (UA) Urine Ketones Urine Blood Urine Nitrite Urine Bilirubin Urine Urobilinogen Ur Leukocyte Esterase RPR Titer Nonreactive Labs reviewed - Medication Discharge Medications: Ambulatory Orders Albuterol Sulfate Inhaler - [Ventolin HFA Inhaler -] 2 inh IH Q4H PRN #1 inhaler 11/09/17 Quetiapine Fumarate [Seroquel] 100 mg PO HS #30 tablet 11/09/17 - Diagnosis (1) Leukocytosis Status: Acute (2) Glycosuria with normal serum glucose Status: Acute (3) Alcohol dependence with uncomplicated withdrawal Status: Acute (4) Anxiety and depression Status: Chronic (5) Opioid dependence with withdrawal Status: Acute (6) Asthma Status: Chronic Qualifiers: Asthma severity: mild Asthma persistence: intermittent Asthma complication type: with status asthmaticus Qualified Code(s): J45.22 - Mild intermittent asthma with status asthmaticus (7) Nicotine dependence Status: Chronic Qualifiers: Nicotine product type: cigarettes Substance use status: in withdrawal Qualified Code(s): F17.213 - Nicotine dependence, cigarettes, with withdrawal - AMA Did Patient Leave Against Medical Advice: Yes (Patient instructed to proceed to ER via 911 if symptoms or feeling sick)
[2018-08-13] MEDS ORDERED: chlordiazePOXIDE 5 MG CAPSULE PO SCH (23:00)
[2018-08-14] MEDS ORDERED: chlordiazePOXIDE HCL 10 MG CAPSULE PO SCH (23:00)
[2018-08-15] MEDS ORDERED: METHADONE HCL 10 MG TABLET (FOR DETOX USE ONLY) PO SCH (10:00)
[2018-08-16] MEDS ORDERED: METHADONE HCL 5 MG TABLET (FOR DETOX USE ONLY) PO SCH (06:00)
== END 2018-08-13 12:04 | disposition left against medical advice (07) | DRG 894 ==
LOC: YASAS 12:09 → Y3N 16:32
PROC: HZ2ZZZZ Detoxification Services for Substance Abuse Treatment (ICD-10-PCS; principal; 2018-08-11)
DX: F11.23 Opioid dependence with withdrawal (principal); F19.282 Other psychoactive substance dependence with psychoactive substance-induced sleep disorder; J45.22 Mild intermittent asthma with status asthmaticus; F10.230 Alcohol dependence with withdrawal, uncomplicated; F17.213 Nicotine dependence, cigarettes, with withdrawal; F41.9 Anxiety disorder, unspecified; D72.829 Elevated white blood cell count, unspecified; R81 Glycosuria
CPT/HCPCS: 36415; 80053; 81003; 85025; 85027; 86593

== ENCOUNTER 2018-10-02 11:13 | Inpatient (IN) | payer OTHER ==
[2018-10-02 11:53] VITALS: BMI 22.8
--- NOTE | 2018-10-02 12:17 | HP ---
COWS - Scale Resting Pulse: 2= [place] 101-120 Sweatin= Chills/Flushing Restless Observation: 3= Extraneous Movement Pupil Size: 1= Pupils >than Normal Bone or Joint Aches: 2= Severe Diffuse Aches Runny Nose/ Eye Tearin= Runny Nose/Eyes GI Upset > 30mins: 2= Nausea/Diarrhea Tremor Observation: 2= Slight Tremor Visible Yawning Observation: 1= 1-2x During Session Anxiety or Irritability: 2=Irritable/Anxious Goose Flesh Skin: 0=Smooth Skin COWS Score: 18 CIWA Score Nausea/Vomitin Muscle Tremors: 2 Anxiety: 2 Agitation: 2 Paroxysmal Sweats: 1-Minimal Palms Moist Orientation: 0-Oriented Tacttile Disturbances: 1-Very Mild Itch/Numbness Auditory Disturbances: 1-Very Mild Visual Disturbances: 0-None Headache: 2-Mild CIWA-Ar Total Score: 13 - Admission Criteria OASAS Guidelines: Admission for Medically Managed Detox: Requires at least one of the followin. CIWA greater than 12 2. Seizures within the past 24 hours 3. Delirium tremens within the past 24 hours 4. Hallucinations within the past 24 hours 5. Acute intervention needed for co occurring medical disorder 6. Acute intervention needed for co occurring psychiatric disorder 7. Severe withdrawal that cannot be handled at a lower level of care (continued vomiting, continued diarrhea, abnormal vital signs) requiring intravenous medication and/or fluids 8. Patient presents the following: CIWA greater than 12 Admission Criteria Met: Admission criteria met Admission ROS [facility] Chief Complaint: i need help to stop using heroin and alcohol Allergies/Adverse Reactions: Allergies Allergy/AdvReac Type Severity Reaction Status Date / Time No Known Allergies Allergy Verified 10/02/18 14:13 History of Present Illness: this 23 years old male with heroin and alcoholism,seeking detox,withdrawal symptom,last detox 08/11/18 to 08/13/18 not completed history asthma nicotine dependence multiple admissions but keep relapsing no significant period of sobriety Exam Limitations: No Limitations - Ebola screening Have you traveled outside of the country in the last 21 days: No ([place]) Have you had contact with anyone from an Ebola affected area: No Have you been sick,other than usual withdrawal symptoms: No Do you have a fever: No - Review of Systems Constitutional: Chills, Loss of Appetite, Malaise, Night Sweats, Changes in sleep, Weakness, Unintentional Wgt. Loss EENT: reports: Tearing, Nose Congestion Respiratory: reports: No Symptoms reported, Other (asthma) Cardiac: reports: Palpitations GI: reports: Diarrhea, Nausea, Vomiting, Abdominal cramping : reports: No Symptoms Reported Musculoskeletal: reports: Back Pain, Joint Pain, Muscle Pain, Joint Stiffness Integumentary: reports: Dryness Endocrine: reports: No Symptoms Reported Hematology: reports: No Symptoms Reported Psychiatric: reports: No Sypmtoms Reported, Judgement Intact, Mood/Affect Appropiate, Orientated x3, Anxious, Depressed (insomnia) Patient History - Patient Medical History Hx Anemia: No Hx Asthma: Yes (on albuterol inhaler) Hx Chronic Obstructive Pulmonary Disease (COPD): No Hx Cancer: No Hx Cardiac Disorders: No Hx Congestive Heart Failure: No Hx Hypertension: No Hx Hypercholesterolemia: No Hx Pacemaker: No HX Cerebrovascular Accident: No Hx Seizures: No Hx Dementia: No Hx Diabetes: No Hx Gastrointestinal Disorders: No Hx Liver Disease: No Hx Genitourinary Disorders: No Hx Sexually Transmitted Disorders: No Hx Renal Disease (ESRD): No Hx Thyroid Disease: No Hx Human Immunodeficiency Virus (HIV): No (11/12 last negative) Hx Hepatitis C: No Hx Depression: No (anxiety) Hx Suicide Attempt: No Hx Bipolar Disorder: No Hx Schizophrenia: No Other Medical History: insomnia,no suicidal,no honicidal - Patient Surgical History Past Surgical History: No Hx Neurologic Surgery: No Hx Cataract Extraction: No Hx Cardiac Surgery: No Hx Lung Surgery: No Hx Breast Surgery: No Hx Breast Biopsy: No Hx Abdominal Surgery: No Hx Appendectomy: No Hx Cholecystectomy: No Hx Genitourinary Surgery: No Hx Section: No Hx Orthopedic Surgery: No - PPD History Previous Implant?: Yes Documented Results: Negative w/proof Date: 08/13/18 Results: no reading PPD to be Administered?: Yes - Smoking Cessation Smoking history: Current every day smoker Have you smoked in the past 12 months: Yes Aproximately how many cigarettes per day: 10 Cigars Per Day: 0 Hx Chewing Tobacco Use: No Initiated information on smoking cessation: Yes 'Breaking Loose' booklet given: 10/02/18 - Substance & Tx. History Hx Alcohol Use: Yes Hx Substance Use: Yes Substance Use Type: Alcohol, Heroin Hx Substance Use Treatment: Yes ([facility] 08/11/18 to ) - Substances Abused Heroin Route: Inhalation Frequency: Daily Amount used: 6 bags Age of first use: 21 Date of Last Use: 10/02/18 Alcohol Route: Oral Frequency: Daily Amount used: 2pints of vodka Age of first use: 23 Date of Last Use: 10/02/18 Family Disease History - Family Disease History Family Disease History: Other: Father (no contact) Admission Physical Exam [facility] - Vital Signs Vital Signs: Vital Signs - 24 hr 10/02/18 11:52 Temperature 97.9 F Pulse Rate 106 H Respiratory 17 Rate Blood Pressure 144/76 - Physical General Appearance: Yes: Moderate Distress, Tremorous, Irritable, Sweating, Anxious HEENTM: Yes: Normal ENT Inspection, SHAKEEL, Pharynx Normal Respiratory: Yes: Lungs Clear, Normal Breath Sounds, No Respiratory Distress Neck: Yes: Within Normal Limits, Supple, Trachea in good position Breast: Yes: Within Normal Limits Cardiology: Yes: Tachycardia Abdominal: Yes: Within Normal Limits, Normal Bowel Sounds, Non Tender, Flat, Soft Genitourinary: Yes: Within Normal Limits Back: Yes: Muscle Spasm Extremities: Yes: Tremors Neurological: Yes: awning craftsperson II-XII NML intact, Fully Oriented, Alert, Motor Strength 5/5 Integumentary: Yes: Dry Lymphatic: Yes: Within Normal Limits - Diagnostic (1) Opioid dependence with withdrawal Current Visit: No Status: Acute (2) Alcohol dependence with uncomplicated withdrawal Current Visit: No Status: Acute (3) Insomnia Current Visit: No Status: Acute Qualifiers: Insomnia type: unspecified Qualified Code(s): G47.00 - Insomnia, unspecified (4) Asthma Current Visit: No Status: Chronic Qualifiers: Asthma severity: mild Asthma persistence: intermittent Asthma complication type: with status asthmaticus Qualified Code(s): J45.22 - Mild intermittent asthma with status asthmaticus (5) Nicotine dependence Current Visit: No Status: Chronic Qualifiers: Nicotine product type: cigarettes Substance use status: in withdrawal Qualified Code(s): F17.213 - Nicotine dependence, cigarettes, with withdrawal (6) [place] (generalized anxiety disorder) Current Visit: No Status: Ruled-out Cleared for Admission S - Detox or Rehab S Level of Care: Medically Managed Detox Regimen/Protocol: Methadone/Librium [facility] Breath Alcohol Content Breath Alcohol Content: 0 Urine Drug Screen - Results Drug Screen Negative: No Urine Drug Screen Results: OPI-Opiates, OXY-Oxycodone, FEN-Fentanyl
[2018-10-02] MEDS ORDERED: LOPERAMIDE HCL 2 MG CAPSULE PO PRN (12:30)
[2018-10-02] MEDS ORDERED: IBUPROFEN 400 MG TABLET (FP) PO PRN (12:30)
[2018-10-02] MEDS ORDERED: MAG HYDROX/AL HYDROX/SIMETH 30 ML UNIT-DOSE CUP PO PRN (12:30)
[2018-10-02] MEDS ORDERED: ACETAMINOPHEN 325 MG TABLET (FP) PO PRN (12:30)
[2018-10-02] MEDS ORDERED: guaiFENesin/D-METHORPHAN HB 10 ML UNIT-DOSE CUPS PO PRN (12:30)
[2018-10-02] MEDS ORDERED: MAGNESIUM HYDROX 2400MG/30ML ORAL SUSPENSION 30 ML CUP PO PRN (12:30)
[2018-10-02] MEDS ORDERED: MENTHOL/PHENOL 1 EACH UD MM PRN (12:30)
[2018-10-02] MEDS ORDERED: MAGNESIUM CITRATE 300 ML BOTTLE PO PRN (12:30)
[2018-10-02] MEDS ORDERED: chlordiazePOXIDE HCL 25 MG CAPSULE PO PRN (12:30)
[2018-10-02] MEDS ORDERED: P-EPHED 60MG/TRIPROLIDI 2.5MG TABLET PO PRN (12:30)
[2018-10-02] MEDS ORDERED: CYCLOBENZAPRINE HCL 10 MG TABLET (FP) PO PRN (12:33)
[2018-10-02] MEDS ORDERED: ALBUTEROL SO4 8 GM HFA INHALER IH PRN (12:33)
[2018-10-02] MEDS ORDERED: METHADONE HCL 10 MG TABLET (FOR DETOX USE ONLY) PO ONE ×2 (13:30→23:00)
[2018-10-02 18:01] LABS: URINE APPEARANCE CLEAR; URINE BILIRUBIN NEGATIVE (<2.0 mg/dL); URINE COLOR AMBER; URINE GLUCOSE (UA) 2+ (NEGATIVE); URINE KETONE NEGATIVE (NEGATIVE); URINE LEUK ESTERASE NEGATIVE (NEGATIVE); URINE NITRITE NEGATIVE (NEGATIVE); URINE PROTEIN NEGATIVE (NEGATIVE)
[2018-10-02] MEDS: chlordiazePOXIDE HCL 25 MG CAPSULE PO SCH ×2 (18:22→22:48)
[2018-10-02] MEDS ORDERED: MELATONIN 5 MG TABLETS PO PRN (22:00)
[2018-10-02] MEDS: THIAMINE HCL 100 MG TABLET (FP) PO SCH (22:51)
[2018-10-03] MEDS: chlordiazePOXIDE HCL 25 MG CAPSULE PO SCH ×4 (06:14→22:18)
[2018-10-03] MEDS ORDERED: METHADONE HCL 10 MG TABLET (FOR DETOX USE ONLY) PO SCH (10:00)
[2018-10-03 10:34] LABS: HEMATOCRIT 36.5 % (35.4-49); HEMOGLOBIN 12.4 GM/dL (11.7-16.9); MCH 27.2 pg (25.7-33.7); MCHC 33.9 g/dl (32.0-35.9); MEAN CELL VOLUME 80.4 fl (80-96); MEAN PLT VOLUME 7.3 fl (7.5-11.1); PLATELET COUNT 336 K/MM3 (134-434); RBC 4.54 M/mm3 (4.00-5.60); RDW 12.9 % (11.9-15.9); WHITE BLOOD COUNT 8.6 K/mm3 (4.0-10.0)
[2018-10-03 11:05] LABS: ALBUMIN 3.9 g/dl (3.4-5.0); ALK PHOS 77 U/L (45-117); ANION GAP 7 MMOL/L (8-16); BILIRUBIN,TOTAL 0.5 mg/dL (0.2-1); BLOOD UREA NITROGEN 12 mg/dL (7-18); CALCIUM 8.5 mg/dL (8.5-10.1); CHLORIDE 106 mmol/L (98-107); CO2 28 mmol/L (21-32); CREATININE 0.7 mg/dL (0.55-1.3); GLUCOSE,RANDOM 90 mg/dL (74-106); POTASSIUM 4.1 mmol/L (3.5-5.1); SGOT/AST 12 U/L (15-37); SGPT/ALT 19 U/L (13-61); SODIUM 141 mmol/L (136-145); TOT PROT 6.3 g/dl (6.4-8.2)
--- NOTE | 2018-10-03 11:16 | PN ---
[facility] CIWA - CIWA Score Nausea/Vomitin-Mild Nausea/No Vomiting Muscle Tremors: 4-Moderate,w/Arms Extend Anxiety: 3 Agitation: 3 Paroxysmal Sweats: 1-Minimal Palms Moist Orientation: 1-Uncertain about Date Tacttile Disturbances: 0-None Auditory Disturbances: 0-None Visual Disturbances: 0-None Headache: 1-Very Mild CIWA-Ar Total Score: 14 S COWS - Scale Resting Pulse: 1= [place] 81-100 Sweatin= Chills/Flushing Restless Observation: 1= Difficult to Sit Still Pupil Size: 0= Normal to Room Light Bone or Joint Aches: 2= Severe Diffuse Aches Runny Nose/ Eye Tearin= Nasal Congestion GI Upset > 30mins: 2= Nausea/Diarrhea Tremor Observation of Outstretched Hands: 1= Tremor [place], Not Seen Yawning Observation: 1= 1-2x During Session Anxiety or Irritability: 1=Feels Anxious/Irritable Goose Flesh Skin: 0=Smooth Skin COWS Score: 11 [facility] Progress Note (SOAP) Subjective: sweat tremor anxiety body aches Objective: 10/03/18 11:15 Vital Signs Temperature 98.1 F 10/03/18 09:41 Pulse Rate 79 10/03/18 09:41 Respiratory Rate 16 10/03/18 09:41 Blood Pressure 106/68 10/03/18 09:41 O2 Sat by Pulse Oximetry (%) Laboratory Last Values WBC 8.6 K/mm3 (4.0-10.0) 10/03/18 07:15 RBC 4.54 M/mm3 (4.00-5.60) 10/03/18 07:15 Hgb 12.4 GM/dL (11.7-16.9) 10/03/18 07:15 Hct 36.5 % (35.4-49) 10/03/18 07:15 MCV 80.4 fl (80-96) 10/03/18 07:15 MCH 27.2 pg (25.7-33.7) 10/03/18 07:15 MCHC 33.9 g/dl (32.0-35.9) 10/03/18 07:15 RDW 12.9 % (11.9-15.9) 10/03/18 07:15 Plt Count 336 K/MM3 (134-434) 10/03/18 07:15 MPV 7.3 fl (7.5-11.1) L 10/03/18 07:15 Sodium 141 mmol/L (136-145) 10/03/18 07:15 Potassium 4.1 mmol/L (3.5-5.1) 10/03/18 07:15 Chloride 106 mmol/L (98-107) 10/03/18 07:15 Carbon Dioxide 28 mmol/L (21-32) 10/03/18 07:15 Anion Gap 7 MMOL/L (8-16) L 10/03/18 07:15 BUN 12 mg/dL (7-18) 10/03/18 07:15 Creatinine 0.7 mg/dL (0.55-1.3) 10/03/18 07:15 Creat Clearance w eGFR > 60 (>60) 10/03/18 07:15 Random Glucose 90 mg/dL (74-106) 10/03/18 07:15 Calcium 8.5 mg/dL (8.5-10.1) 10/03/18 07:15 Total Bilirubin 0.5 mg/dL (0.2-1) 10/03/18 07:15 AST 12 U/L (15-37) L 10/03/18 07:15 ALT 19 U/L (13-61) 10/03/18 07:15 Alkaline Phosphatase 77 U/L (45-117) 10/03/18 07:15 Total Protein 6.3 g/dl (6.4-8.2) L 10/03/18 07:15 Albumin 3.9 g/dl (3.4-5.0) 10/03/18 07:15 Urine Color [place] 10/02/18 14:44 Urine Appearance Clear 10/02/18 14:44 Urine pH 5.0 (5.0-8.0) 10/02/18 14:44 Ur Specific [place] 1.031 (1.010-1.035) 10/02/18 14:44 Urine Protein Negative (NEGATIVE) 10/02/18 14:44 Urine Glucose (UA) 2+ (NEGATIVE) H 10/02/18 14:44 Urine Ketones Negative (NEGATIVE) 10/02/18 14:44 Urine Blood Negative (NEGATIVE) 10/02/18 14:44 Urine Nitrite Negative (NEGATIVE) 10/02/18 14:44 Urine Bilirubin Negative (<2.0 mg/dL) 10/02/18 14:44 Urine Urobilinogen 2.0 mg/dL (0.2-1.0) 10/02/18 14:44 Ur Leukocyte Esterase Negative (NEGATIVE) 10/02/18 14:44 lab noted Assessment: 10/03/18 11:17 withdrawal sx Plan: continue detox
[2018-10-03] MEDS: PRENATAL VITAMINS W/ FOLIC ACID TABLET (FP) PO SCH (13:35)
[2018-10-03] MEDS: THIAMINE HCL 100 MG TABLET (FP) PO SCH (22:19)
[2018-10-04] MEDS: hydrOXYzine PAMOATE 50 MG CAPSULE (FP) PO PRN ×2 (02:10→11:59)
[2018-10-04] MEDS: chlordiazePOXIDE HCL 25 MG CAPSULE PO SCH ×2 (06:22→10:38)
[2018-10-04] MEDS ORDERED: METHADONE HCL 5 MG TABLET (FOR DETOX USE ONLY) PO SCH (10:00)
[2018-10-04] MEDS: PRENATAL VITAMINS W/ FOLIC ACID TABLET (FP) PO SCH (10:38)
--- NOTE | 2018-10-04 11:20 | PN ---
[facility] CIWA - CIWA Score Nausea/Vomitin-No Nausea/No Vomiting Muscle Tremors: 2 Anxiety: 3 Agitation: 2 Paroxysmal Sweats: 2 Orientation: 0-Oriented Tacttile Disturbances: 0-None Auditory Disturbances: 0-None Visual Disturbances: 0-None Headache: 0-None Present CIWA-Ar Total Score: 9 S COWS - Scale Resting Pulse: 0= [place] 80 or Below Sweatin=Flushed/Facial Moisture Restless Observation: 1= Difficult to Sit Still Pupil Size: 0= Normal to Room Light Bone or Joint Aches: 1= Mild Discomfort Runny Nose/ Eye Tearin= None GI Upset > 30mins: 0= None Tremor Observation of Outstretched Hands: 2= Slight Tremor Visible Yawning Observation: 0= None Anxiety or Irritability: 1=Feels Anxious/Irritable Goose Flesh Skin: 0=Smooth Skin COWS Score: 7 S Progress Note (SOAP) Subjective: tremors anxious requesting to be discharged on thursday because "I am on supervised release, I have to be there at 11am on . it's [place] long distance from here, I have to be there on time no fail" Objective: 10/04/18 11:15 A & O x 3 Ambulating steadily on unit anxious Vital Signs Temperature 98.4 F 10/04/18 09:34 Pulse Rate 90 10/04/18 09:34 Respiratory Rate 18 10/04/18 09:34 Blood Pressure 109/60 10/04/18 09:34 O2 Sat by Pulse Oximetry (%) Laboratory Last Values WBC 8.6 K/mm3 (4.0-10.0) 10/03/18 07:15 RBC 4.54 M/mm3 (4.00-5.60) 10/03/18 07:15 Hgb 12.4 GM/dL (11.7-16.9) 10/03/18 07:15 Hct 36.5 % (35.4-49) 10/03/18 07:15 MCV 80.4 fl (80-96) 10/03/18 07:15 MCH 27.2 pg (25.7-33.7) 10/03/18 07:15 MCHC 33.9 g/dl (32.0-35.9) 10/03/18 07:15 RDW 12.9 % (11.9-15.9) 10/03/18 07:15 Plt Count 336 K/MM3 (134-434) 10/03/18 07:15 MPV 7.3 fl (7.5-11.1) L 10/03/18 07:15 Sodium 141 mmol/L (136-145) 10/03/18 07:15 Potassium 4.1 mmol/L (3.5-5.1) 10/03/18 07:15 Chloride 106 mmol/L (98-107) 10/03/18 07:15 Carbon Dioxide 28 mmol/L (21-32) 10/03/18 07:15 Anion Gap 7 MMOL/L (8-16) L 10/03/18 07:15 BUN 12 mg/dL (7-18) 10/03/18 07:15 Creatinine 0.7 mg/dL (0.55-1.3) 10/03/18 07:15 Creat Clearance w eGFR > 60 (>60) 10/03/18 07:15 Random Glucose 90 mg/dL (74-106) 10/03/18 07:15 Calcium 8.5 mg/dL (8.5-10.1) 10/03/18 07:15 Total Bilirubin 0.5 mg/dL (0.2-1) 10/03/18 07:15 AST 12 U/L (15-37) L 10/03/18 07:15 ALT 19 U/L (13-61) 10/03/18 07:15 Alkaline Phosphatase 77 U/L (45-117) 10/03/18 07:15 Total Protein 6.3 g/dl (6.4-8.2) L 10/03/18 07:15 Albumin 3.9 g/dl (3.4-5.0) 10/03/18 07:15 Urine Color Jenny 10/02/18 14:44 Urine Appearance Clear 10/02/18 14:44 Urine pH 5.0 (5.0-8.0) 10/02/18 14:44 Ur Specific [place] 1.031 (1.010-1.035) 10/02/18 14:44 Urine Protein Negative (NEGATIVE) 10/02/18 14:44 Urine Glucose (UA) 2+ (NEGATIVE) H 10/02/18 14:44 Urine Ketones Negative (NEGATIVE) 10/02/18 14:44 Urine Blood Negative (NEGATIVE) 10/02/18 14:44 Urine Nitrite Negative (NEGATIVE) 10/02/18 14:44 Urine Bilirubin Negative (<2.0 mg/dL) 10/02/18 14:44 Urine Urobilinogen 2.0 mg/dL (0.2-1.0) 10/02/18 14:44 Ur Leukocyte Esterase Negative (NEGATIVE) 10/02/18 14:44 RPR Titer Nonreactive (NONREACTIVE) 10/03/18 07:15 2+ urine glucose Assessment: withdrawal sx Plan: continue detox Increase hydration For discharge on saturday 10/06
--- NOTE | 2018-10-04 14:01 | PN ---
[facility] Progress Note Note: T/c from RN - Pt insisting on leaving despite attempts by Counselor and RN to get him to stay. Pt left the unit prior to this service writer arriving the unit to discuss with him. Pt left AMA; unable to inquire if he needs refill of albuterol or not. Also unable to send narcan to [place] as pt will not know to go pick the narcan up. Message left on the '[phone]' cell # provided by pt at registration, also unable to leave message on the [phone] line.
--- NOTE | 2018-10-04 14:19 | DS ---
[facility] Detox Discharge Summary Admission Date: 10/02/18 Discharge Date: 10/04/18 - History Additional Comments: Pt left unit against medical advice. Please see progress notes - Physical Exam Results Vital Signs: Vital Signs Temperature 98.4 F 10/04/18 09:34 Pulse Rate 90 10/04/18 09:34 Respiratory Rate 18 10/04/18 09:34 Blood Pressure 109/60 10/04/18 09:34 O2 Sat by Pulse Oximetry (%) - Medication Discharge Medications: Ambulatory Orders Albuterol Sulfate Inhaler - [Ventolin HFA Inhaler -] 2 inh IH Q4H PRN #1 inhaler 11/09/17 Quetiapine Fumarate [Seroquel] 100 mg PO HS #30 tablet 11/09/17 - Diagnosis (1) Alcohol dependence with uncomplicated withdrawal Current Visit: Yes Status: Acute (2) Glycosuria with normal serum glucose Current Visit: Yes Status: Acute (3) Insomnia Current Visit: Yes Status: Acute Qualifiers: Insomnia type: unspecified Qualified Code(s): G47.00 - Insomnia, unspecified (4) Opioid dependence with withdrawal Current Visit: Yes Status: Acute (5) Substance-induced anxiety disorder Current Visit: No Status: Acute (6) Substance-induced sleep disorder Current Visit: No Status: Acute (7) Anxiety and depression Current Visit: No Status: Chronic (8) Asthma Current Visit: No Status: Chronic Qualifiers: Asthma severity: mild Asthma persistence: intermittent Asthma complication type: with status asthmaticus Qualified Code(s): J45.22 - Mild intermittent asthma with status asthmaticus (9) Nicotine dependence Current Visit: No Status: Chronic Qualifiers: Nicotine product type: cigarettes Substance use status: in withdrawal Qualified Code(s): F17.213 - Nicotine dependence, cigarettes, with withdrawal (10) Substance induced mood disorder Current Visit: No Status: Suspected (11) [place] (generalized anxiety disorder) Current Visit: No Status: Ruled-out - AMA Did Patient Leave Against Medical Advice: Yes
[2018-10-04 14:26] VITALS: BP 123/78; PULSE 110; TEMP 98.2
[2018-10-04] MEDS ORDERED: chlordiazePOXIDE 5 MG CAPSULE PO SCH (17:00)
[2018-10-05] MEDS ORDERED: chlordiazePOXIDE HCL 10 MG CAPSULE PO SCH (17:00)
[2018-10-06] MEDS ORDERED: METHADONE HCL 10 MG TABLET (FOR DETOX USE ONLY) PO SCH ×2 (06:00→10:00)
[2018-10-07] MEDS ORDERED: METHADONE HCL 5 MG TABLET (FOR DETOX USE ONLY) PO SCH (06:00)
== END 2018-10-04 13:40 | disposition left against medical advice (07) | DRG 894 ==
LOC: YASAS 11:13 → Y6N 12:30
PROC: HZ2ZZZZ Detoxification Services for Substance Abuse Treatment (ICD-10-PCS; principal; 2018-10-02)
DX: F11.23 Opioid dependence with withdrawal (principal); F19.282 Other psychoactive substance dependence with psychoactive substance-induced sleep disorder; J45.22 Mild intermittent asthma with status asthmaticus; F10.230 Alcohol dependence with withdrawal, uncomplicated; F17.210 Nicotine dependence, cigarettes, uncomplicated; F19.24 Other psychoactive substance dependence with psychoactive substance-induced mood disorder; F41.1 Generalized anxiety disorder; F41.9 Anxiety disorder, unspecified; F32.9 Major depressive disorder, single episode, unspecified; G47.00 Insomnia, unspecified; D72.829 Elevated white blood cell count, unspecified; R81 Glycosuria
CPT/HCPCS: 36415; 80053; 81003; 85027; 86593

== ENCOUNTER 2018-11-27 13:34 | Inpatient (IN) | payer OTHER ==
[2018-11-27 14:19] VITALS: BMI 22.1
--- NOTE | 2018-11-27 14:40 | HP ---
COWS - Scale Resting Pulse: 1= [place] 81-100 Sweatin= Chills/Flushing Restless Observation: 1= Difficult to Sit Still Pupil Size: 1= Pupils >than Normal Bone or Joint Aches: 2= Severe Diffuse Aches Runny Nose/ Eye Tearin= Runny Nose/Eyes GI Upset > 30mins: 2= Nausea/Diarrhea Tremor Observation: 2= Slight Tremor Visible Yawning Observation: 1= 1-2x During Session Anxiety or Irritability: 2=Irritable/Anxious Goose Flesh Skin: 0=Smooth Skin COWS Score: 15 CIWA Score Nausea/Vomitin Muscle Tremors: 3 Anxiety: 2 Agitation: 2 Paroxysmal Sweats: 1-Minimal Palms Moist Orientation: 0-Oriented Tacttile Disturbances: 1-Very Mild Itch/Numbness Auditory Disturbances: 1-Very Mild Visual Disturbances: 0-None Headache: 2-Mild CIWA-Ar Total Score: 15 - Admission Criteria [facility] Guidelines: Admission for Medically Managed Detox: Requires at least one of the followin. CIWA greater than 12 2. Seizures within the past 24 hours 3. Delirium tremens within the past 24 hours 4. Hallucinations within the past 24 hours 5. Acute intervention needed for co occurring medical disorder 6. Acute intervention needed for co occurring psychiatric disorder 7. Severe withdrawal that cannot be handled at a lower level of care (continued vomiting, continued diarrhea, abnormal vital signs) requiring intravenous medication and/or fluids 8. Patient presents the following: CIWA greater than 12 Admission Criteria Met: Admission criteria met Admission ROS [facility] Chief Complaint: i need help to stop using heroin,xanax,alcohol Allergies/Adverse Reactions: Allergies Allergy/AdvReac Type Severity Reaction Status Date / Time No Known Allergies Allergy Verified 11/27/18 19:00 History of Present Illness: this 23 years old male with heroin,alcohol,xanax dependence seeking detox,last treatment 10/06/18 to 10/08/18 detox,rehab 8 to 10/18/18 nicotine dependence anxiety,depression,insomnia,derek,insomnia,personality problem longest period of sobriety Exam Limitations: No Limitations - Ebola screening Have you traveled outside of the country in the last 21 days: No (N) Have you had contact with anyone from an Ebola affected area: No Have you been sick,other than usual withdrawal symptoms: No Do you have a fever: No - Review of Systems Constitutional: Chills, Loss of Appetite, Malaise, Night Sweats, Changes in sleep EENT: reports: Tearing, Nose Congestion Respiratory: reports: No Symptoms reported Cardiac: reports: No Symptoms Reported, See HPI GI: reports: Diarrhea, Poor Appetite, Indigestion, Abdominal cramping : reports: No Symptoms Reported Musculoskeletal: reports: Back Pain, Muscle Pain Neuro: reports: Headache, Tremors Endocrine: reports: No Symptoms Reported Hematology: reports: No Symptoms Reported Psychiatric: reports: No Sypmtoms Reported, Judgement Intact, Mood/Affect Appropiate, Orientated x3 Patient History - Patient Medical History Hx Anemia: No Hx Asthma: Yes (on albuterol inhaler) Hx Chronic Obstructive Pulmonary Disease (COPD): No Hx Cancer: No Hx Cardiac Disorders: No Hx Congestive Heart Failure: No Hx Hypertension: No Hx Hypercholesterolemia: No Hx Pacemaker: No HX Cerebrovascular Accident: No Hx Seizures: No Hx Dementia: No Hx Diabetes: No Hx Gastrointestinal Disorders: No Hx Liver Disease: No Hx Genitourinary Disorders: No Hx Sexually Transmitted Disorders: No Hx Renal Disease (ESRD): No Hx Thyroid Disease: No Hx Human Immunodeficiency Virus (HIV): No (11/12 last negative) Hx Hepatitis C: No Hx Depression: No (anxiety) Hx Suicide Attempt: No Hx Bipolar Disorder: No Hx Schizophrenia: No Other Medical History: no suicidal,no homicidal - Patient Surgical History Past Surgical History: No Hx Neurologic Surgery: No Hx Cataract Extraction: No Hx Cardiac Surgery: No Hx Lung Surgery: No Hx Breast Surgery: No Hx Breast Biopsy: No Hx Abdominal Surgery: No Hx Appendectomy: No Hx Cholecystectomy: No Hx Genitourinary Surgery: No Hx Section: No Hx Orthopedic Surgery: No Anesthesia Reaction: No - PPD History Previous Implant?: Yes Documented Results: Negative w/o proof Date: 08/13/18 Results: no reading PPD to be Administered?: Yes - Smoking Cessation Smoking history: Current every day smoker Have you smoked in the past 12 months: Yes Aproximately how many cigarettes per day: 10 Cigars Per Day: 0 Hx Chewing Tobacco Use: No Initiated information on smoking cessation: Yes 'Breaking Loose' booklet given: 11/27/18 - Substance & Tx. History Hx Alcohol Use: Yes Hx Substance Use: Yes Substance Use Type: Heroin, Tranquilizers Hx Substance Use Treatment: Yes - Substances Abused Heroin Route: Inhalation Frequency: Daily Amount used: 4 to 6 bags Age of first use: 21 Date of Last Use: 11/27/18 Alprazolam (Xanax) Route: Inhalation Frequency: Daily Amount used: 4 mgs Age of first use: 20 Date of Last Use: 11/26/18 Alcohol Route: Oral Frequency: 1-2 times per week Amount used: 1/2pint of william Age of first use: 19 Family Disease History - Family Disease History Family Disease History: Other: Father (no contact) Admission Physical Exam S - Vital Signs Vital Signs: Vital Signs - 24 hr 11/27/18 14:18 Temperature 96.3 F L Pulse Rate 98 H Respiratory 18 Rate Blood Pressure 127/69 - Physical General Appearance: Yes: Moderate Distress, Tremorous, Irritable, Sweating, Anxious HEENTM: Yes: Normal ENT Inspection, SHAKEEL, Pharynx Normal Respiratory: Yes: Lungs Clear, Normal Breath Sounds, No Respiratory Distress Neck: Yes: Within Normal Limits, Supple, Trachea in good position Breast: Yes: Within Normal Limits Cardiology: Yes: Within Normal Limits, Regular Rhythm, Regular Rate, S1, S2 Abdominal: Yes: Within Normal Limits, Normal Bowel Sounds, Non Tender, Flat, Soft Genitourinary: Yes: Within Normal Limits Back: Yes: Within Normal Limits Musculoskeletal: Yes: Within Normal Limits, Back pain, Muscle Pain Extremities: Yes: Tremors Neurological: Yes: county attorney II-XII NML intact, Fully Oriented, Alert, Motor Strength 5/5 Integumentary: Yes: Dry Lymphatic: Yes: Within Normal Limits - Diagnostic (1) Opioid dependence with withdrawal Current Visit: No Status: Acute (2) Insomnia Current Visit: No Status: Acute Qualifiers: Insomnia type: unspecified Qualified Code(s): G47.00 - Insomnia, unspecified (3) Asthma Current Visit: No Status: Chronic Qualifiers: Asthma severity: mild Asthma persistence: intermittent Asthma complication type: with status asthmaticus Qualified Code(s): J45.22 - Mild intermittent asthma with status asthmaticus (4) Nicotine dependence Current Visit: No Status: Chronic Qualifiers: Nicotine product type: cigarettes Substance use status: in withdrawal Qualified Code(s): F17.213 - Nicotine dependence, cigarettes, with withdrawal (5) Substance induced mood disorder Current Visit: No Status: Suspected (6) Alcohol abuse Current Visit: Yes Status: Acute (7) Benzodiazepine abuse Current Visit: Yes Status: Acute Cleared for Admission [facility] - Detox or Rehab [facility] Level of Care: Medically Managed Detox Regimen/Protocol: Methadone [facility] Breath Alcohol Content Breath Alcohol Content: 0 Urine Drug Screen - Results Drug Screen Negative: No Urine Drug Screen Results: OPI-Opiates, OXY-Oxycodone, FEN-Fentanyl
[2018-11-27] MEDS ORDERED: METHADONE HCL 10 MG TABLET (FOR DETOX USE ONLY) PO ONE ×3 (14:54→23:00)
[2018-11-27] MEDS ORDERED: LOPERAMIDE HCL 2 MG CAPSULE PO PRN (14:55)
[2018-11-27] MEDS ORDERED: MAG HYDROX/AL HYDROX/SIMETH 30 ML UNIT-DOSE CUP PO PRN (14:55)
[2018-11-27] MEDS ORDERED: P-EPHED 60MG/TRIPROLIDI 2.5MG TABLET PO PRN (14:55)
[2018-11-27] MEDS ORDERED: hydrOXYzine PAMOATE 25 MG CAPSULE (FP) PO PRN (14:55)
[2018-11-27] MEDS ORDERED: IBUPROFEN 400 MG TABLET (FP) PO PRN (14:55)
[2018-11-27] MEDS ORDERED: MAGNESIUM HYDROX 2400MG/30ML ORAL SUSPENSION 30 ML CUP PO PRN (14:55)
[2018-11-27] MEDS ORDERED: MAGNESIUM CITRATE 300 ML BOTTLE PO PRN (14:55)
[2018-11-27] MEDS ORDERED: ACETAMINOPHEN 325 MG TABLET (FP) PO PRN (14:55)
[2018-11-27] MEDS ORDERED: guaiFENesin/D-METHORPHAN HB 10 ML UNIT-DOSE CUPS PO PRN (14:55)
[2018-11-27] MEDS ORDERED: MENTHOL/PHENOL 1 EACH UD MM PRN (14:55)
[2018-11-27] MEDS: diazePAM 5 MG TABLET PO PRN (20:07)
[2018-11-27] MEDS ORDERED: THIAMINE HCL 100 MG TABLET (FP) PO SCH (22:00)
[2018-11-27] MEDS ORDERED: MELATONIN 5 MG TABLETS PO PRN (22:00)
[2018-11-28 09:34] VITALS: BP 102/59; PULSE 79; TEMP 97.9
[2018-11-28] MEDS ORDERED: PRENATAL VITAMINS W/ FOLIC ACID TABLET (FP) PO SCH (10:00)
[2018-11-28] MEDS ORDERED: METHADONE HCL 10 MG TABLET (FOR DETOX USE ONLY) PO ONE (10:00)
[2018-11-28] MEDS: diazePAM 5 MG TABLET PO PRN (10:35)
[2018-11-28 10:36] LABS: HEMATOCRIT 38.7 % (35.4-49); HEMOGLOBIN 12.8 GM/dL (11.7-16.9); MEAN CELL VOLUME 81.8 fl (80-96); MEAN PLT VOLUME 6.8 fl (7.5-11.1); PLATELET COUNT 346 K/MM3 (134-434); RBC 4.73 M/mm3 (4.00-5.60); RDW 13.1 % (11.9-15.9); WHITE BLOOD COUNT 7.4 K/mm3 (4.0-10.0)
[2018-11-28 10:49] LABS: ALK PHOS 90 U/L (45-117); ANION GAP 8 MMOL/L (8-16); BILIRUBIN,TOTAL 0.3 mg/dL (0.2-1); BLOOD UREA NITROGEN 12 mg/dL (7-18); CALCIUM 8.8 mg/dL (8.5-10.1); CHLORIDE 106 mmol/L (98-107); CO2 27 mmol/L (21-32); CREATININE 0.8 mg/dL (0.55-1.3); GLUCOSE,RANDOM 98 mg/dL (74-106); POTASSIUM 4.3 mmol/L (3.5-5.1); SGOT/AST 27 U/L (15-37); SGPT/ALT 49 U/L (13-61); SODIUM 141 mmol/L (136-145); TOT PROT 6.5 g/dl (6.4-8.2)
--- NOTE | 2018-11-28 12:23 | PN ---
[facility] COWS - Scale Resting Pulse: 1= [place] 81-100 Sweatin= No chills or Flushing Restless Observation: 1= Difficult to Sit Still Pupil Size: 0= Normal to Room Light Bone or Joint Aches: 1= Mild Discomfort Runny Nose/ Eye Tearin= Nasal Congestion GI Upset > 30mins: 1= Stomach Cramp Tremor Observation of Outstretched Hands: 1= Tremor [place], Not Seen Yawning Observation: 0= None Anxiety or Irritability: 2=Irritable/Anxious Goose Flesh Skin: 0=Smooth Skin COWS Score: 8 [facility] Progress Note (SOAP) Subjective: pt states the detox meds are working fine, he is OK Vital Signs - 24 hr 11/27/18 11/27/18 11/28/18 14:18 22:17 00:30 Temperature 96.3 F L 98.2 F Pulse Rate 98 H 99 H Respiratory 18 18 18 Rate Blood Pressure 127/69 126/70 11/28/18 11/28/18 11/28/18 03:30 07:22 09:34 Temperature 97 F L 97.9 F Pulse Rate 78 79 Respiratory 18 18 18 Rate Blood Pressure 108/61 102/59 L Laboratory Tests 11/28/18 11/28/18 11/28/18 07:50 07:50 07:50 WBC 7.4 RBC 4.73 Hgb 12.8 Hct 38.7 MCV 81.8 MCH 27.0 MCHC 33.0 RDW 13.1 Plt Count 346 MPV 6.8 L Sodium 141 Potassium 4.3 Chloride 106 Carbon Dioxide 27 Anion Gap 8 BUN 12 Creatinine 0.8 Creat Clearance w eGFR > 60 Random Glucose 98 Calcium 8.8 Total Bilirubin 0.3 AST 27 ALT 49 Alkaline Phosphatase 90 Total Protein 6.5 Albumin 4.0 RPR Titer Nonreactive a/p: continue detox protocol, pt doing well
--- NOTE | 2018-11-28 16:52 | DS ---
[facility] Detox Discharge Summary Admission Date: 11/27/18 Discharge Date: 11/28/18 - History Present History: Alcohol Dependence, Sedative Dependence - Physical Exam Results Vital Signs: Vital Signs Temperature 97.9 F 11/28/18 09:34 Pulse Rate 79 11/28/18 09:34 Respiratory Rate 18 11/28/18 09:34 Blood Pressure 102/59 L 11/28/18 09:34 O2 Sat by Pulse Oximetry (%) Pertinent Admission Physical Exam Findings: pt came in yesterday. States he has a lot on his mind- is being charged with multiple felonies and does not want to be here as he is restless thinking about theses charges - Medication Discharge Medications: Ambulatory Orders Albuterol Sulfate Inhaler - [Ventolin HFA Inhaler -] 2 inh IH Q4H PRN #1 inhaler 11/09/17 Quetiapine Fumarate [Seroquel] 100 mg PO HS #30 tablet 11/09/17 - AMA Did Patient Leave Against Medical Advice: Yes
[2018-11-29] MEDS ORDERED: METHADONE HCL 5 MG TABLET (FOR DETOX USE ONLY) PO ONE (10:00)
[2018-11-30] MEDS ORDERED: METHADONE HCL 5 MG TABLET (FOR DETOX USE ONLY) PO ONE (10:00)
[2018-12-01] MEDS ORDERED: METHADONE HCL 10 MG TABLET (FOR DETOX USE ONLY) PO ONE (10:00)
[2018-12-02] MEDS ORDERED: METHADONE HCL 5 MG TABLET (FOR DETOX USE ONLY) PO ONE (06:00)
== END 2018-11-28 12:26 | disposition left against medical advice (07) | DRG 894 ==
LOC: YASAS 13:34 → Y6N 14:52
PROVIDERS: ADMIT Neuromusculoskeletal Medicine & OMM; ATTEND Neuromusculoskeletal Medicine & OMM
PROC: HZ2ZZZZ Detoxification Services for Substance Abuse Treatment (ICD-10-PCS; principal; 2018-11-27)
DX: F11.23 Opioid dependence with withdrawal (principal); J45.22 Mild intermittent asthma with status asthmaticus; F10.10 Alcohol abuse, uncomplicated; F13.10 Sedative, hypnotic or anxiolytic abuse, uncomplicated; F17.213 Nicotine dependence, cigarettes, with withdrawal; F19.24 Other psychoactive substance dependence with psychoactive substance-induced mood disorder; G47.00 Insomnia, unspecified
CPT/HCPCS: 36415; 80053; 85027; 86593